=== PATIENT | male | born 1935 | race Caucasian/White ===

== ENCOUNTER 2022-01-20 08:12 | Emergency (ER) | payer MEDICARE, OTHER ==
[~2022-01-20] VITALS: Ht 170.2 cm; Wt 60.8 kg
[~2022-01-20 08:12] MED LIST: METF-440 PO
[2022-01-20 08:22] VITALS: BP 121/67
[2022-01-20] MEDS ORDERED: BENZOIN COMPOUND TINCT 60 ML BOTTLE ONE (08:29)
--- NOTE | 2022-01-20 08:47 | NUR ---
Patient discharged to home in stable condition. Written and verbal after care instructions given. Patient verbalizes understanding of instruction.
== END 2022-01-20 08:46 | disposition home or self-care (01) ==
LOC: ER 08:17
DX: S51.812A Laceration without foreign body of left forearm, initial encounter (principal); E11.9 Type 2 diabetes mellitus without complications; Z88.8 Allergy status to other drugs, medicaments and biological substances; W06.XXXA Fall from bed, initial encounter; Y93.89 Activity, other specified; Y92.89 Other specified places as the place of occurrence of the external cause; Y99.8 Other external cause status
CPT/HCPCS: 99281; A6403

== ENCOUNTER 2025-01-17 17:59 | Inpatient (IN) | payer MEDICARE ==
[~2025-01-17] VITALS: Ht 170.2 cm; Wt 60.8 kg
[2025-01-17] MEDS: IV NS 0.9% 500 ML BAG IV ONE (18:30)
[2025-01-17 18:52] LABS: PLATELET COUNT (AUTO) 96 K/uL (150-450); RED BLOOD CELL COUNT(AUTO) 3.53 MIL/uL (4.5-6.0); RED CELL DISTRIBUTION WIDTH 13.6 % (11.5-15.0); WHITE BLOOD COUNT (AUTO) 6.5 K/uL (4.3-11.0)
[2025-01-17 18:53] LABS: CALCIUM, SERUM 9.1 mg/dL (8.5-10.1); CREATININE 1.4 mg/dL (0.6-1.3); SODIUM SERUM 139 mmol/L (136-145); UREA NITROGEN, BLOOD 21 mg/dL (7-18)
[2025-01-17 19:23] LABS: NEUTROPHILS % (MANUAL) 73 (42-76)
[2025-01-17 19:24] LABS: BASOPHILS % (MANUAL) 0 % (0.0-2.0); EOSINOPHILS % (MANUAL) 1 % (0-4); LYMPHOCYTES % (MANUAL) 21 % (16-48); MONOCYTES % (MANUAL) 5 % (0-11.0); PLATELET ESTIMATE DECREASED
[2025-01-17] MEDS ORDERED: ONDANSETRON HCL/PF 4 MG/2 ML VIAL IVP PRN (22:30)
[2025-01-17] MEDS ORDERED: MAGNESIUM HYDROXIDE 30 ML UDC PO PRN (22:30)
[2025-01-17] MEDS ORDERED: MAG HYDROX/AL HYDROX/SIMETH 30 ML UDC PO PRN (22:30)
[2025-01-17] MEDS ORDERED: ACETAMINOPHEN 325 MG TABLET PO PRN (22:30)
[2025-01-17 23:00] VITALS: BP 142/70; TEMP 97.9; O2SAT 99
[2025-01-17 23:15] VITALS: BP 142/70; TEMP 97.9; O2SAT 97
[2025-01-18] VITALS (7 sets, daily range): BP systolic 61–143; BP diastolic 37–84; TEMP 97.3–98.1; O2SAT 97–99
[2025-01-18] MEDS ORDERED: DEXTROSE 50%-WATER 50 ML DISP.SYRIN IV PRN (02:00)
[2025-01-18 06:07] LABS: PLATELET COUNT (AUTO) 90 K/uL (150-450); RED BLOOD CELL COUNT(AUTO) 3.49 MIL/uL (4.5-6.0); RED CELL DISTRIBUTION WIDTH 13.7 % (11.5-15.0); WHITE BLOOD COUNT (AUTO) 5.5 K/uL (4.3-11.0)
[2025-01-18 06:26] LABS: CALCIUM, SERUM 9.0 mg/dL (8.5-10.1); CREATININE 1.3 mg/dL (0.6-1.3); PHOSPHORUS 3.1 mg/dL (2.5-4.9); SODIUM SERUM 142.0 mmol/L (136-145); UREA NITROGEN, BLOOD 19.0 mg/dL (7-18)
[2025-01-18 06:27] LABS: APPEARANCE,URINE CLEAR (CLEAR); BLOOD, URINE NEGATIVE Ery/uL (NEGATIVE); LEUKOCYTE ESTERASE ,URINE NEGATIVE (NEGATIVE); NITRITE, URINE NEGATIVE (NEGATIVE); UGLUCOSE NEGATIVE (NEGATIVE)
[2025-01-18] MEDS: BLOOD SUGAR DIAGNOSTIC 1 EACH STRIP IN SCH (07:00)
[2025-01-18] MEDS: PANTOPRAZOLE 40 MG TABLET.DR PO SCH (08:02)
[2025-01-18] MEDS ORDERED: THIA50TA10 PO (08:25)
[2025-01-18] MEDS: METFORMIN 500 MG TABLET PO SCH (09:07)
[2025-01-18 10:35] LABS: EOSINOPHILS % (MANUAL) 2 % (0-4); LYMPHOCYTES % (MANUAL) 22 % (16-48); MONOCYTES % (MANUAL) 8 % (0-11.0); NEUTROPHILS % (MANUAL) 68 (42-76); PLATELET ESTIMATE DECREASED
[2025-01-18] MEDS: INSULIN REGULAR, HUMAN 100 UNIT/ML 3 ML VIAL SQ PRN (11:44)
[2025-01-19] VITALS: BP 114/67; TEMP 97.8; O2SAT 97
[2025-01-19 04:00] VITALS: BP 130/72; TEMP 97.9; O2SAT 97
[2025-01-19 06:36] LABS: IRON, SERUM 103.0 ug/dl (50-175)
[2025-01-19 06:42] LABS: CALCIUM, SERUM 9.4 mg/dL (8.5-10.1); CREATININE 1.4 mg/dL (0.6-1.3); SODIUM SERUM 141.0 mmol/L (136-145); UREA NITROGEN, BLOOD 27.0 mg/dL (7-18)
[2025-01-19 08:00] VITALS: BP 113/66; TEMP 97.9; O2SAT 97
[2025-01-19 10:03] LABS: PLATELET COUNT (AUTO) 94 K/uL (150-450); RED BLOOD CELL COUNT(AUTO) 3.53 MIL/uL (4.5-6.0); RED CELL DISTRIBUTION WIDTH 13.6 % (11.5-15.0); WHITE BLOOD COUNT (AUTO) 5.7 K/uL (4.3-11.0)
[2025-01-19 12:00] VITALS: BP 126/81; TEMP 98.4; O2SAT 98
[2025-01-19 12:29] LABS: EOSINOPHILS % (MANUAL) 1 % (0-4); LYMPHOCYTES % (MANUAL) 19 % (16-48); MONOCYTES % (MANUAL) 11 % (0-11.0); NEUTROPHILS % (MANUAL) 69 (42-76); PLATELET ESTIMATE DECREASED
[2025-01-19] MEDS: IV LR 1000 ML 1,000 ML IV SCH (13:26)
[2025-01-19 16:00] VITALS: BP 139/64; TEMP 98.7; O2SAT 97
[2025-01-19 20:00] VITALS: BP 134/74; TEMP 98.1; O2SAT 97
[2025-01-20] VITALS: BP 114/63; TEMP 98.1; O2SAT 97
[2025-01-20 04:00] VITALS: BP_SYST 125; BP_DIAS 51; BP_DIAS 81; TEMP 97.8; O2SAT 97
[2025-01-20 06:24] LABS: PLATELET COUNT (AUTO) 83 K/uL (150-450); RED BLOOD CELL COUNT(AUTO) 3.52 MIL/uL (4.5-6.0); RED CELL DISTRIBUTION WIDTH 13.6 % (11.5-15.0); WHITE BLOOD COUNT (AUTO) 5.6 K/uL (4.3-11.0)
[2025-01-20 06:29] LABS: CALCIUM, SERUM 9.4 mg/dL (8.5-10.1); CREATININE 1.4 mg/dL (0.6-1.3); SODIUM SERUM 141.0 mmol/L (136-145); UREA NITROGEN, BLOOD 25.0 mg/dL (7-18)
[2025-01-20 07:00] VITALS: BP 126/50; TEMP 97.7; O2SAT 98
[2025-01-20 10:27] LABS: BASOPHILS % (MANUAL) 0 % (0.0-2.0); EOSINOPHILS % (MANUAL) 2 % (0-4); LYMPHOCYTES % (MANUAL) 22 % (16-48); MONOCYTES % (MANUAL) 11 % (0-11.0); NEUTROPHILS % (MANUAL) 65 (42-76); PLATELET ESTIMATE DECREASED
[2025-01-21 07:07] LABS: FOLIC ACID > 20.0 ng/mL (>3.0)
[2025-01-22 12:07] LABS: CORTISOL AM 11.5 ug/dL (6.2-19.4)
== END 2025-01-20 18:10 | disposition home or self-care (01) | DRG 73 ==
LOC: ER 18:12 → TELE 22:33
PROVIDERS: ADMIT Registered Nurse Psychiatric/Mental Health; ATTEND Internal Medicine
DX: G90.89 Other disorders of autonomic nervous system (principal); N17.0 Acute kidney failure with tubular necrosis; I95.1 Orthostatic hypotension; D69.6 Thrombocytopenia, unspecified; E11.65 Type 2 diabetes mellitus with hyperglycemia; N18.9 Chronic kidney disease, unspecified; I12.9 Hypertensive chronic kidney disease with stage 1 through stage 4 chronic kidney disease, or unspecified chronic kidney disease; Z91.048 Other nonmedicinal substance allergy status; Z87.891 Personal history of nicotine dependence; Z79.84 Long term (current) use of oral hypoglycemic drugs; D53.9 Nutritional anemia, unspecified; K74.60 Unspecified cirrhosis of liver; I35.0 Nonrheumatic aortic (valve) stenosis; K82.8 Other specified diseases of gallbladder; I65.22 Occlusion and stenosis of left carotid artery; K59.00 Constipation, unspecified; Z79.899 Other long term (current) drug therapy
CPT/HCPCS: 36415; 71045-TC; 76700-TC; 80048-TC; 82533; 82607-TC; 82962-TC; 83540-TC; 83735-TC; 84100-TC; 84443-TC; 84484-TC; 85027-TC; 93307-TC; 93880-TC; A4223; G0378; J1815; J7120